=== PATIENT | female | born 1950 | race Asian ===

== ENCOUNTER 2025-03-11 15:34 | Outpatient (AMB) | payer OTHER, SELFPAY ==
--- OUTSIDE RECORDS SUMMARY | 2025-03-06 12:54 | XMS_ITS | Encounter Summary ---
Author Organization [facility] Address [address] [place] [address] Care Team Providers Care Third Miller Name Role Phone Km Evans MD Primary Care Provider [phone] Reason for Referral * Imaging (Routine) - Closed Specialty Diagnoses / Procedures Referred By Contac t Referred To Contact Radiology Diagnoses Encounter for osteoporosis screening in asymptomatic postmenopausal patient Procedures BD Bone Density DXA Axial Skeleton Km Evans MD [address] [place] [address] Phone: tel: fax: [address] Phone: tel: Referral ID Status Reason Start Date Expiration Date Visits Re quested Visits Authorized [id number] Closed 12/18/2024 12/18/2025 1 1 Reason for Visit * Imaging (Routine) - Closed Specialty Diagnoses / Procedures Referred By Contac t Referred To Contact Radiology Diagnoses Encounter for osteoporosis screening in asymptomatic postmenopausal patient Procedures BD Bone Density DXA Axial Skeleton Km Evans MD [address] [place] [address] Phone: tel: fax: [address] [address] Phone: tel: Referral ID Status Reason Start Date Expiration Date Visits Re quested Visits Authorized [id number] Closed 12/18/2024 12/18/2025 1 1 Encounter Details Date Type Department Care Team (Latest Contact Info) Description 03/06/2025 12:54 PM EST - 03/06/2025 11:59 PM EST Hospital Encounter [facility] Bone Density [address] [place] [address] Encounter for osteoporosis screening in asymptomatic postmenopausal patient Discharge Disposition: Home or Self Care Social History Tobacco Use Types Packs/Day Years Used Date Smoking Tobacco: Former Cigarettes 0 Q uit: 05/28/2017 Smokeless Tobacco: Never Alcohol Use Standard Drinks/Week Comments No 0 (1 standard drink = 0.6 oz pur e alcohol) Comments No Sex and Gender Information Value Date Recorded Sex Assigned at Female 08/10/2024 12:45 AM EDT Legal Sex Female 6:50 PM EST Gender Identity Female 08/10/2024 12:45 AM EDT Sexual Orientation Not on file documented as of this encounter Medications at Time of Discharge acetaminophen (TYLENOL 8 HOUR) 650 mg 8 hr tablet Take 1 tablet (650 mg total) by mouth every 8 (eight) hours if needed for mild pain. for pain 90 tablet 3 12/18/2024 albuterol HFA (PROAIR HFA ; PROVENTIL HFA ; VENTOLIN HFA) 90 mcg/actuation inhaler Inhale 2 puffs by mouth every 4 (four) hours if needed for wheezing. 8.5 g 3 12/18/2024 amLODIPine (NORVASC) 5 mg tablet Take 1.5 tablets (7.5 mg total) by mouth 1 (one) time each day. 135 each 1 12/18/2024 blood-glucose meter kit Use to check blood sugar once a day 08/16/2023 cetirizine (ZyrTEC) 10 mg tablet Take 10 mg by mouth daily. cyanocobalamin (VITAMIN B-12) 1,000 mcg tablet Take 1 tablet (1,000 mcg total) by mouth 3 (three) times a week. 90 tablet 1 06/14/2024 docusate sodium (COLACE) 100 mg capsule Take 1 Capsule by mouth 2 times daily. May repeat in 12 hours if needed 08/16/2023 dorzolamide-timoloL (COSOPT) 22.3-6.8 mg/mL ophthalmic solution 1 Drop 2 times daily. ferrous sulfate 325 mg (65 mg elemental iron) tablet Take 1 tablet (325 mg total) by mouth 3 (three) times a week. 90 tablet 06/14/2024 folic acid (FOLVITE) 1 mg tablet Take 1 Tablet by mouth daily. 04/13/2023 gabapentin (NEURONTIN) 300 mg capsule Take 2 capsules (600 mg total) by mouth 2 (two) times a day. 360 capsule 1 01/01/2025 glipiZIDE (GLUCOTROL XL) 5 mg 24 hr tablet Do not crush, chew, or split.Take 1 Tablet by mouth Daily before dinner. 90 tablet 1 12/18/2024 glipiZIDE (GLUCOTROL) 10 mg tablet Take 1 tablet daily in the morning and glipizide 5 mg daily at suppertime 90 tablet 1 12/18/2024 meloxicam (MOBIC) 7.5 mg tablet TAKE 1 TABLET(7.5 MG) BY MOUTH 1 TIME EACH DAY NEEDED FOR MODERATE PAIN 90 tablet 1 09/16/2024 metFORMIN (GLUCOPHAGE) 1,000 mg tablet Take 1 tablet (1,000 mg total) by mouth 2 (two) times a day with meals. 180 tablet 1 12/18/2024 omeprazole (PriLOSEC) [address] capsule Take 1 capsule (20 mg total) by mouth 2 (two) times a day. 180 capsule 1 12/18/2024 ondansetron ODT (ZOFRAN-ODT) 4 mg disintegrating tablet Dissolve 1 tablet (4 mg total) on top of the tongue 1 (one) time each day if needed for nausea or vomiting. 30 tablet 2 12/18/2024 OneTouch Ultra Test test strip USE TO TEST BLOOD SUGAR ONCE DAILY 100 strip 1 02/26/2025 OneTouch UltraSoft Lancets Use to check blood sugar once a day 08/16/2023 oxyCODONE (ROXICODONE) 5 mg immediate release tabletIndications:C hronic midline low back pain without sciatica Take 1 tablet (5 mg total) by mouth 1 (one) time each day if needed for moderate pain or severe pain. Max Daily Amount: 5 mg 28 tablet 12/18/2024 polyethylene glycol (MIRALAX) 17 gram packet Take 17 g by mouth 1 (one) time each day. 1530 g 12/18/2024 simvastatin (ZOCOR) 20 mg tablet Take 1 tablet (20 mg total) by mouth at bedtime. at bedtime. 90 tablet 1 12/18/2024 SUMAtriptan (IMITREX) 50 mg tablet Take 1-2 Tabs by mouth daily as needed for Migraine. May repeat dose once after 2 hours, if needed. Maximum 4 tabs in 24 hours 05/28/2018 documented as of this encounter Discharge Disposition Disposition Code Departure Means Destination Home or Self Care documented in this encounter Plan of Treatment Upcoming Encounters Date Type Department Care Team (Late st Contact Info) Description 03/15/2025 1:10 PM EST Appointment Radiology Department - [address] [phone] 04/22/2025 3:30 PM EST Office Visit Adult Medicine [place] - [address] [phone] Km Evans MD [address] [place] [address] 07/18/2025 3:45 PM EDT Office Visit Pulmonology - [address] [place] [address] Denys Mary MD [address] [place] [address] documented as of this encounter Procedures Procedure Name Priority Date/Time Associated Diagnosis Comments BD BONE DENSITY DXA AXIAL SKELETON Routine 03/06/2025 1:30 PM EST Encounter for osteoporosis screening in asymptomatic postmenopausal patient documented in this encounter Results * BD Bone Density DXA Axial Skeleton (03/06/2025 1:30 PM EST) Anatomical Region Laterality Modality Wrist, Hip, L-spine Bone Densito metry 03/07/2025 8:02 AM EST Impressions 03/07/2025 8:04 AM EST 1. Osteoporosis. There has been a decrease of 2.4% in bone mineral density in the lumbar spine since the prior examination of 01/24/2019. There has been a decrease of 5.7% in bone mineral density in the right femur and a decrease of 2.0% in bone mineral density in the left femur. 2. FRAX analysis yields a 10-year probability of major osteoporotic fracture of 8.8% and a 10-year probability of hip fracture of 2.4%. Code 06405 -------- FINAL REPORT -------- Dictated By: Horacio Hood Dictated Date: 03/07/2025 08:02 ET Assigned Physician: Horacio Hood Reviewed and Electronically Signed By: Horacio Hood Signed Date: 03/07/2025 08:04 ET Workstation ID: [id number] Transcribed By: Self Edit Transcribed Date: 03/07/2025 08:02 ET Narrative 03/07/2025 8:04 AM EST HISTORY: The patient is a 74-year-old postmenopausal female with clinical concern for metabolic bone disease. FINDINGS: Dual energy x-ray absorptiometry of the lumbar spine and femurs is performed. The mean bone mineral density at L1-L4 (with the exclusion of L3) is 0.912 gm/cm2 which is 78% of that of young normals and 99% of that of age matched controls. This yields a T-score of -2.2 and a Z-score of -0.1 which is diagnostic of osteopenia. The mean bone mineral density of the femurs bilaterally is 0.824 gm/cm2 which is 82% of that of young normals and 107% of that of age matched controls. This yields a T-score of -1.5 and a Z-score of 0.4 which is diagnostic of osteopenia. However, the T-score of the left femoral neck is -2.6 which is diagnostic of osteoporosis. Procedure Note Horacio Hood MD - 03/07/2025 HISTORY: The patient is a 74-year-old postmenopausal female with clinicalconcern for metabolic bone disease. FINDINGS: Dual energy x-ray absorptiometry of the lumbar spine and femursis performed. The mean bone mineral density at L1-L4 (with the exclusionof L3) is 0.912 gm/cm2 which is 78% of that of young normals and 99% ofthat of age matched controls. This yields a T-score of -2.2 and a Z-scoreof -0.1 which is diagnostic of osteopenia. The mean bone mineral density of the femurs bilaterally is 0.824 gm/xq5xxvhm is 82% of that of young normals and 107% of that of age matchedcontrols. This yields a T-score of -1.5 and a Z-score of 0.4 which isdiagnostic of osteopenia. However, the T-score of the left femoral neckis -2.6 which is diagnostic of osteoporosis. IMPRESSION: 1. Osteoporosis. There has been a decrease of 2.4% in bone mineraldensity in the lumbar spine since the prior examination of 01/24/2019.There has been a decrease of 5.7% in bone mineral density in the rightfemur and a decrease of 2.0% in bone mineral density in the left femur. 2. FRAX analysis yields a 10-year probability of major osteoporoticfracture of 8.8% and a 10-year probability of hip fracture of 2.4%. Code 04971 -------- FINAL REPORT -------- Dictated By: Horacio Hood Dictated Date: 03/07/2025 08:02 ET Assigned Physician: Horacio Hood Reviewed and Electronically Signed By: Horacio Hood Signed Date: 03/07/2025 08:04 ET Workstation ID: [id number] Transcribed By: Self Edit Transcribed Date: 03/07/2025 08:02 ET Km Evans MD IM DXA PROCEDURES Final Re sult documented in this encounter Visit Diagnoses Diagnosis Encounter for osteoporosis screening in asymptomatic postmenopausal patient documented in this encounter Additional Health Concerns Assessment Noted Time PHQ-9 Depression Total Score: 0 08/17/19 25 4:17 PM EDT documented as of this encounter Care Teams Third Miller Relationship Specialty Start Date End Date Km Evans MD [address] [place] [address] PCP - General Internal Medicine 07/20/21 documented as of this encounter
--- NOTE | 2025-03-11 15:40 | MHC.OFFVIS ---
Intake Visit Reasons: 6 month follow up Sleeve Fixer Required: Yes Sleeve Fixer Services: Sleeve Fixer Offered & Declined (son to translate) Accompanied by: Son Allergies No Known Allergies Allergy (Verified 03/11/25 15:43) Medication List - Last Reconciled 03/11/25 by Luba Bush CNP albuterol sulfate 90 mcg/actuation 2 puffs inhalation Q4H PRN amlodipine mg PO brimonidine 0.2% 1 drp ophthalmic (eye) BID fluorometholone 0.1% 1 drp ophthalmic (eye) DAILY gabapentin 600 mg (2 x 300 mg) PO BID 90 days glipizide ER 5 mg PO DAILY latanoprost 0.005% 1 drp ophthalmic (eye) BEDTIME meloxicam 7.5 mg PO DAILY metformin 1,000 mg PO BID omeprazole 20 mg PO BID ondansetron 4 mg PO ONCE PRN simvastatin 20 mg PO BEDTIME sumatriptan succinate mg PO HPI Comments Details: She was doing okay. She ran out of gabapentin for about a week a few months ago and headaches increased during that time. Headaches improved after restarting medication and were not happening that much anymore. Sumatriptan as needed helped. Sleep was okay. She moved here from [place] in 2012 and has history of hypertension, diabetes, low back pain, and migraines. She had 2 hospital visits and admissions to [facility] for headaches, imaging studies were apparently unremarkable. She gets headaches that last 2-3 hours and are associated with photophobia and nausea. She has had headaches ever since she was young. Her mother also suffered from migraine headaches. Review of Systems Const Denies chills, Denies daytime sleepiness, Denies difficulty sleeping, Denies fatigue, Denies fever(s), Denies frequent falls, Reports headache(s), Denies increased appetite, Denies poor appetite, Denies snoring, Denies weakness, Denies weight gain and Denies weight loss Eyes Denies loss of vision ENT Denies vertigo, Denies dizziness, Reports headache(s) and Denies neck pain Card Denies chest pain at rest, Denies chest pain with activity, Denies syncope, Denies leg edema, Denies palpitations, Denies dyspnea and Denies dyspnea on exertion Resp Denies cough, Denies dyspnea, Denies dyspnea on exertion and Denies snoring GI Denies abdominal pain, Denies constipation, Denies heartburn, Denies diarrhea and Denies nausea Denies urinary frequency, Denies urinary incontinence and Denies urinary urgency Musc Denies abnormal gait, Denies back pain, Denies myalgias, Denies arthralgias, Denies neck pain, Denies numbness and Denies tingling Neuro Denies abnormal gait, Denies vertigo, Denies dizziness, Denies syncope, Denies frequent falls, Reports headache(s), Denies lack of coordination, Denies loss of vision, Denies memory loss, Denies numbness, Denies Other visual disturbances, Denies restless legs, Denies seizure-like activity, Denies tingling, Denies paresthesias, Denies tremor(s) and Denies weakness Psych Denies anxiety, Denies depression, Denies auditory hallucinations, Denies memory loss and Denies visual hallucinations Endo Denies fatigue and Denies palpitations Physical Exam Const Other: General Appearance:? normal, in no acute distress. Heart:? S1, S2 normal, no murmurs. Lungs:? clear anteriorly and posteriorly. Musculoskeletal:? normal. Extremities:? no edema. Psych:? alert, oriented, cognitive function intact, cooperative with exam. Neuro Other: Abnormal Neurological Findings:?none.? Mental Status: alert and oriented X 3. Normal attention, orientation, memory, and affect. Cranial Nerves: Pupils are equal, round, and reactive to light. External ocular muscles are intact. Visual venegas are full, no ptosis. Face is symmetrical, no facial weakness or droop. Facial sensations are normal. Tongue protrudes in midline. Palate elevates symmetrically. Shoulder shrugging is normal Motor Examination: Normal muscle tone, bulk and strength. No atrophy or fasciculations. No drift of the extended upper extremities. DTR 2+. Plantars are flexor. Sensory Exam: Normal light touch, temperature, pinprick, vibration, and joint-position sensations. Rhomberg sign is absent. Coordination: No ataxia. No titubation. Gait Exam: Within normal limits. Cerebellar Signs: [id number]-ta-[id number] is okay. Extrapyramidal System: No tremor, rigidity with normal facial expressions. No bradykinesia. No bradyphrenia. Normal arm swing and posture. No propulsion or retropulsion. Speech: Normal. Assessment & Plan Assessment & Plan (1) Migraine: Code(s): G43.909 - Migraine, unspecified, not intractable, without status migrainosus Category: Medical Qualifiers: Migraine type: unspecified Status migrainosus presence: without status migrainosus Intractability: not intractable Qualified Code(s): G43.909 - Migraine, unspecified, not intractable, without status migrainosus Plan: Continue gabapentin 300mg 2 capsules at bedtime. Continue sumatriptan 50mg 1 tablet as needed for migraine. Follow up in 6 months or sooner as needed. Medications: New sumatriptan succinate take 1 tab at onset of headache; if no relief may repeat 1 tab after at least 2 hrs; PO 10 tabs 5RF 30 days Refilled gabapentin 600 mg (2 x 300 mg) PO BID 360 caps 1RF 90 days Discontinued sumatriptan succinate Discontinued Reason: Order PO Coding Level of Care Code Est Pt Level 4 (92684) Diagnoses Migraine without status migrainosus, not intractable, unspecified migraine type G43.909 Migraine type: unspecified Status migrainosus presence: without status migrainosus Intractability: not intractable
--- OUTSIDE RECORDS SUMMARY | 2025-03-11 16:39 | XMS_ITS | Encounter Summary ---
Author Organization [facility] Address [address] [place] [address] Care Team Providers Care Workplace Trainer And Assessor Name Role Phone Km Evans MD Primary Care Provider [phone] Encounter Details Date Type Department Care Team ([facility] Contact Info) Description 03/07/2025 Results Follow-Up [address] [phone] Km Evans MD [address] [place] [address] Social History Tobacco Use Types Packs/Day Years [...] on file documented as of this encounter Plan of Treatment Upcoming Encounters Date Type Department Care Team ([facility] Contact Info) Description 03/15/2025 1:10 PM EST Appointment Radiology Department - [address] [phone] 04/22/2025 3:30 PM EST Office Visit Adult Medicine [address] [place], [place] [phone] Km Evans MD [address] [place], [place] 07/18/2025 3:45 PM EDT Office Visit Pulmonology - [address] [place] [address] Denys Mary MD [address] [place] [address] documented as of this encounter Visit Diagnoses Not on filedocumented in this encounter Additional Health Concerns Assessment Noted Time PHQ-9 Depression Total Score: 0 08/17/19 25 4:17 PM EDT documented as of this encounter Care Teams Workplace Trainer And Assessor Relationship Specialty Start Date End Date Km Evans MD [address] [place] [address] PCP - General Internal Medicine 07/20/21 documented as of this encounter
--- OUTSIDE RECORDS SUMMARY | 2025-03-11 16:39 | XMS_ITS | Clinical Summary ---
Author Organization [facility] Prior to 08/17/24 Address [address] [place] [address] Care Team Providers Care Set Up Mechanic Coil Winding Machines Name Role Phone Rosie Green MD Primary Care Provid er Allergies No known active allergies Medications Medication Sig Dispensed Refills Start Date End Date Status phenazopyridine (PYRIDIUM) 100 MG tablet Take 100 mg by mouth 3 (three) times a day after meals. 0 Active lisinopril (PRINIVIL,ZESTRIL) tablet 20 mg Take 20 mg by mouth daily. 0 Active omeprazole (PriLOSEC) 20 MG capsule Take 20 mg by mouth daily. 0 Active glipiZIDE (GLUCOTROL) tablet 10 mg Take 10 mg by mouth 2 (two) times a day before breakfast and dinner. 0 Active oxyCODONE (ROXICODONE) 5 MG immediate release tablet Take 5 mg by mouth every 4 (four) hours as needed for pain. 0 Active gabapentin (NEURONTIN) 300 MG capsule Take 300 mg by mouth 3 (three) times a day. 0 Active meloxicam (MOBIC) 7.5 MG tablet Take 7.5 mg by mouth daily. 0 Active metFORMIN (GLUCOPHAGE) tablet 1000 mg Take 1,000 mg by mouth 2 (two) times a day with meals. 0 Active polyethylene glycol (MIRALAX) 17 g packet Take 17 g by mouth daily. 0 Active polyethylene glycol (GOLYTELY) 236 g solution Take by mouth once. 0 Active Albuterol Sulfate 108 (90 Base) MCG/ACT AEPB Inhale into the lungs. 0 Active fluticasone-salmeterol (ADVAIR DISKUS) 250-50 MCG/DOSE DISKUS 1 inhalation by Inhaled route every 12 (twelve) hours. 0 Active simvastatin (ZOCOR) tablet 20 mg Take 20 mg by mouth every night at bedtime. 0 Active donepezil (ARICEPT) 5 MG tablet Take 5 mg by mouth every night at bedtime. 0 Active ondansetron (ZOFRAN-ODT) 4 MG disintegrating tablet Take by mouth. 0 Active Cyanocobalamin [address] under the tongue. 0 Active SUMAtriptan (IMITREX) 50 MG tablet Take 50 mg by mouth every 2 (two) hours as needed for migraine. 0 Active cetirizine (ZyrTEC) 10 MG tablet Take 10 mg by mouth daily. 0 Active docusate sodium (COLACE) 100 MG capsule Take 100 mg by mouth 2 (two) times a day. 0 Active B-12, Methylcobalamin, [address] under the tongue. 0 Active CHOLECALCIFEROL PO Take by mouth. 0 Ac tive dorzolamide-timolol (COSOPT) 22.3-6.8 MG/ML ophthalmic solution 1 drop 2 (two) times a day. 0 Active Active Problems No known active problems Social History Tobacco Use Types Packs/Day Years Used Date Smoking Tobacco: Former Smokeless Tobacco: Never Comments:quit 3 years ago Alcohol Use Standard Drinks/Week Comments No 0 (1 standard drink = 0.6 oz pur e alcohol) Sex and Gender Information Value Date Recorded Sex Assigned at Not on file Gender Identity Not on file Sexual Orientation Not on file Last Filed Vital Signs Vital Sign Reading Time Taken Comments Blood Pressure 148/91 12/05/2019 11:48 AM EDT pt seeing PCP who is adjusting her medications Pulse 99 12/05/2019 11:48 AM EDT Temperature 36.3 C (97.3 F) 12/05/2019 11:48 AM EDT Respiratory Rate - - Oxygen Saturation - - Inhaled Oxygen Concentration - - Weight 56.2 kg (123 lb 12.8 oz) 12/05/2019 11:48 AM EDT Height 142.2 cm (4' 8 ) 12/05/2019 11:4 8 AM EDT Body Mass Index 27.76 12/05/2019 11:48 AM EDT Plan of Treatment Health Maintenance Due Date Last Done Comments Hepatitis C Screening 1950 COVID-19 Vaccine (#1) 1950 Depression Screening 1963 Preventative Health Evaluation 05/18/1969 DTap / Tdap / Td (1 - Tdap) 05/18/1970 Colon Cancer Screening (Colonoscopy) 05/18/1996 Breast Cancer Screening (Mammogram) 05/18/2001 Shingrix-Zoster Vaccine (1 o f 2) 05/18/2001 Fall Risk Assessment 05/18/2016 Osteoporosis Screening (DEXA Scan) 05/18/2016 Influenza Vaccine (#1) 2024 9, 12/29/2016 RSV Adult > 60+ Yrs or (1 - 1-dose 75+ series) 05/18/2026 Pneumococcal Vaccine Completed 06/12/2019, 07/18/2016 Hepatitis B Vaccines Aged Out No long er eligible based on patient's age to complete this topic RSV Ped < 20 months Aged Out No longe r eligible based on patient's age to complete this topic Care Teams Set Up Mechanic Coil Winding Machines Relationship Specialty Start Date End Date Rosie Green MD PCP - General Internal Medicine 11/04/19
--- OUTSIDE RECORDS SUMMARY | 2025-03-11 16:39 | XMS_ITS | Clinical Summary ---
Author Organization [facility] Address [address] [place] [address] Phone Care Team Providers Care Photographic Processor Name Role Phone Km Evans MD Primary Care Provider Allergies Active Allergy Reactions Criticality Noted Date Comments Lisinopril Dizziness 03/25/2022 Losartan Dizziness 03/25/2022 Medications blood-glucose meter kit Use to check blood sugar once a day 08/16/19 24 Active cetirizine (ZyrTEC) 10 mg tablet Take 10 mg by mouth daily. Active docusate sodium (COLACE) 100 mg capsule Take 1 Capsule by mouth 2 times daily. May repeat in 12 hours if needed 08/16/19 24 Active dorzolamide-timol oL (COSOPT) 22.3-6.8 mg/mL ophthalmic solution 1 Drop 2 times daily. Active folic acid (FOLVITE) 1 mg tablet Take 1 Tablet by mouth daily. 04/13/19 24 Active OneTouch UltraSoft Lancets Use to check blood sugar once a day 08/16/19 24 Active SUMAtriptan (IMITREX) 50 mg tablet Take 1-2 Tabs by mouth daily as needed for Migraine. May repeat dose once after 2 hours, if needed. Maximum 4 tabs in 24 hours 05/29/19 19 Active ferrous sulfate 325 mg (65 mg elemental iron) tablet Take 1 tablet (325 mg total) by mouth 3 (three) times a week. 90 tablet 06/15/19 25 Active cyanocobalamin (VITAMIN B-12) 1,000 mcg tablet Take 1 tablet (1,000 mcg total) by mouth 3 (three) times a week. 90 tablet 1 06/15/19 25 Active meloxicam (MOBIC) 7.5 mg tablet TAKE 1 TABLET(7.5 MG) BY MOUTH 1 TIME EACH DAY NEEDED FOR MODERATE PAIN 90 tablet 1 09/17/19 25 Active acetaminophen (TYLENOL 8 HOUR) 650 mg 8 hr tablet Take 1 tablet (650 mg total) by mouth every 8 (eight) hours if needed for mild pain. for pain 90 tablet 3 12/19/19 25 Active albuterol HFA (PROAIR HFA ; PROVENTIL HFA ; VENTOLIN HFA) 90 mcg/actuation inhaler Inhale 2 puffs by mouth every 4 (four) hours if needed for wheezing. 8.5 g 3 12/19/19 25 Active glipiZIDE (GLUCOTROL XL) 5 mg 24 hr tablet Do not crush, chew, or split.Take 1 Tablet by mouth Daily before dinner. 90 tablet 1 12/19/19 25 Active glipiZIDE (GLUCOTROL) 10 mg tablet Take 1 tablet daily in the morning and glipizide 5 mg daily at suppertime 90 tablet 1 12/19/19 25 Active metFORMIN (GLUCOPHAGE) 1,000 mg tablet Take 1 tablet (1,000 mg total) by mouth 2 (two) times a day with meals. 180 tablet 1 12/19/19 25 Active omeprazole (PriLOSEC) [address] capsule Take 1 capsule (20 mg total) by mouth 2 (two) times a day. 180 capsule 1 12/19/19 25 Active oxyCODONE (ROXICODONE) 5 mg immediate release tabletIndications :Chronic midline low back pain without sciatica Take 1 tablet (5 mg total) by mouth 1 (one) time each day if needed for moderate pain or severe pain. Max Daily Amount: 5 mg 28 tablet 12/19/19 25 Active ondansetron ODT (ZOFRAN-ODT) 4 mg disintegrating tablet Dissolve 1 tablet (4 mg total) on top of the tongue 1 (one) time each day if needed for nausea or vomiting. 30 tablet 2 12/19/19 25 Active polyethylene glycol (MIRALAX) 17 gram packet Take 17 g by mouth 1 (one) time each day. 1530 g 10/01/20 25 Active simvastatin (ZOCOR) 20 mg tablet Take 1 tablet (20 mg total) by mouth at bedtime. at bedtime. 90 tablet 1 12/19/19 Active amLODIPine (NORVASC) 5 mg tablet Take 1.5 tablets (7.5 mg total) by mouth 1 (one) time each day. 135 each 1 12/19/19 Active gabapentin (NEURONTIN) 300 mg capsule Take 2 capsules (600 mg total) by mouth 2 (two) times a day. 360 capsule 1 01/02/20 Active OneTouch Ultra Test test strip USE TO TEST BLOOD SUGAR ONCE DAILY 100 strip 1 02/27/20 Active OneTouch Ultra Test test strip USE TO CHECK YOUR BLOOD SUGAR ONCE DAILY 100 strip 1 08/17/192024 Discontinued Active Problems Problem Noted Date Diagnosed Date Mixed hyperlipidemia 06/14/2024 Assessment & Plan (08/16/2024 9:03 PM EDT): Chronic nonintractable headache 06/14/2024 Assessment & Plan (08/16/2024 9:03 PM EDT): Orders: Drug abuse screen expanded with reflex confirmation, urine; Future Lung nodules 04/13/2023 Overview (01/11/2024): Last Assessment & Plan: 73-year-old woman former smoker with a 6 mm right upper lobe nodule on CT scan. This nodule is irregular in shape and still quite small although new. I think there is a low likelihood of this being malignancy as there is inflammatory changes around and including some bronchiectasis. I did discuss with her and her son through wax coating machine tender pulmonary nodules in general and how their size, shape, and global climate change analyst time affect her level of suspicion for malignancy. Again, I explained why this is not a suspicious nodule. The option that I discussed with them was a 3-month follow-up CT scan of the chest and a visit in this office after that. All questions were answered. Assessment & Plan (08/29/2024 3:01 PM EDT): Ms. Chavez is a 74 y.o. female, former smoker quit in 2018, who has been having LDCTs with the Lung Cancer Screening Program. Being followed for pulmonary nodules. Her most recent LDCT scan which showed multiple sub-4 mm nodules throughout the lungs which remained stable and a 6 mm right middle lobe nodule versus atelectasis also stable compared to prior. There is no new or worsening suspicious nodules or mediastinal lymphadenopathy. Her LDCT scan is a lung RADS 2 consistent with a benign ideology. She was educated that she would be referred back to the lung cancer screening program with her next LDCT scan due in August 2025 Assessment & Plan (08/16/2024 9:03 PM EDT): Assessment & Plan (02/19/2024 8:25 PM EST): Ms. Chavez is a 73 year old female who had a new 6mm nodule in the RML found on CT chest in September 2023. The patient's most recent CT chest done on 02/07/24 shows that the RML nodule in question appears stable in size, but seems to be tubular in shape on recent image. Low suspicion for malignancy at this time, but should continue ongoing LDCTs as patient remains a candidate for lung screening. Recommend next LDCT with the screening program to be in 6 months, July 2024. Patient does not require ongoing follow up with Thoracic Surgery at this time. Age related osteoporosis 08/10/2022 Assessment & Plan (08/16/2024 9:03 PM EDT): Chronic anemia 08/10/2022 Mild persistent asthma without complication 07/19 Fluid in endometrial cavity 03/30/2020 Overview (01/11/2024): Last Assessment & Plan: I reviewed imaging with patient and her daughter in law. I explained that in the absence of bleeding, with normal ES of 1 mm, and simple appearing sliver of fluid, no intervention is necessary. This is considered WNL. I explained there is no Secretary Of State cause of her pain and that, alternatively, it seems more likely that she has some hip pain. This may be arthritis based on her report that pain is worse when just getting up some mornings and does not happen all the time. I recommended she follow up with her PCP if it becomes more persistent. She will return to me for routine care first available. They voiced understanding and agreed. Time spent with patient and in review of records 20 minutes. Hyponatremia 09/27/2019 Hypercholesterolemia 08/03/2018 Adjustment disorder with depressed mood 05/14/19 19 Anxiety 05/14/2018 Arthritis of both knees 05/14/2018 Asthma-COPD overlap syndrome 05/14/2018 Back pain 05/14/2018 Assessment & Plan (08/16/2024 9:03 PM EDT): Orders: oxyCODONE (ROXICODONE) 5 mg immediate release tablet; Take 1 tablet (5 mg total) by mouth 1 (one) time each day if needed for moderate pain or severe pain. Max Daily Amount: 5 mg Drug abuse screen expanded with reflex confirmation, urine; Future Hypertension 05/14/2018 Overview (01/11/2024): Last Assessment & Plan: Pt reports she usually takes her BP meds at night. Will follow up with PCP for routine care. Assessment & Plan (08/16/2024 9:03 PM EDT): Orders: Basic metabolic panel; Future Microalbumin creatinine urine ratio; Future Interstitial lung disease 05/14/2018 Assessment & Plan (02/19/2024 8:22 PM EST): Refer to pulmonology. Diffuse lung disease on CT. 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 Bone Density [address] [place] [id number] Encounter for osteoporosis screening in asymptomatic postmenopausal patient Discharge Disposition: Home or Self Care 12/18/2024 3:45 PM EDT Office Visit [address] [phone] Km Evans MD Type 2 diabetes mellitus with microalbuminuria, without long-term current use of insulin (CMS/HCC V24, CMS/HCC V28) (Primary Dx); Primary hypertension; Mixed hyperlipidemia; Asthma-COPD overlap syndrome (CMS/HCC V24, CMS/HCC V28); Lung nodules; Chronic nonintractable headache, unspecified headache type; Chronic midline low back pain without sciatica; Age-related osteoporosis without current pathological fracture; Encounter for osteoporosis screening in asymptomatic postmenopausal patient 12/18/2024 Results Follow-Up Adult [address] [phone] Km Evans MD from Last 3 Months Immunizations Immunization Administration Dates Next Due Hepatitis B (Qmhavke-Z-Wjtag , Recombivax HB-Adult) 19yo and older 05/17/2013,01/24/2013,11/28/2012 Hepatitis B (Recombivax HB-D ialysis) 18yo and older 05/17/2013,01/24/2013,11/28/2012 Influenza trivalent, 0.5mL ( Fluad) 65yo and older 12/18/2023,12/12/2022,01/15/2021,01/12,02/19/2019 Influenza trivalent, 0.5mL, preservative free (Fluarix; FluLaval; Fluzone) ages 6mo and older (Afluria) 3 years and older 12/29/2016 Influenza trivalent, with pr eservative (Fluzone; Afluria) 6mo and older 12/11/2014,02/07/2014,04/17/2013 Pfizer SARS-CoV-2 COVID-19, mRNA, LNP-S, preservative free 03/23/2021,07/10/2020,06/18/2020 Pneumococcal conjugate 13 va lent (Prevnar 13, PCV13) 2mo and older 07/18/2016 Pneumococcal conjugate 20 va lent (Prevnar 20, PCV 20) 2mo and older 03/18/2024 Pneumococcal polysaccharide 23 valent (Pneumovax 23) 2yo and older 06/12/2019,05/17/2013 Td Tetanus diptheria (Tdvax) 7yo and older 08/16/2023,11/28/2012 Tdap Tetanus diptheria acell ular pertussis (Boostrix; Adacel) 7yo and older 04/17/2013 Zoster Live 08/13/2015 Surgical History Surgery Date Site/Laterality Comments COLONOSCOPY 09/24/2019 PROCEDURE: HISTORICAL COLONOSCOPY; COMMENT: negative Medical History Medical History Date Comments Adjustment disorder with dep ressed mood 05/14/2018 DX:Adjustment disorder with depressed mood Anxiety 05/14/2018 DX:Anxiety Arthritis of both knees 05/14/2018 DX:Arthr itis of both knees Asthma 05/14/2018 DX:Asthma Back pain 05/14/2018 DX:Back pain Glaucoma 04/25/2018 DX:Glaucoma Hypertension 05/14/2018 DX:Hypertension Interstitial lung disease ([facility] [place] V24, [facility] V28) 05/14/2018 DX:Interstitial lung disease (HCC) 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 ([facility] V24, [facility] V28) 04/25/2018 DX:Mild nonproliferative rafael betic retinopathy of both eyes ([facility]) Osteopenia 05/14/2018 DX:Osteopenia Tuberculosis, treated 05/14/2018 DX:Tubercu losis, treated Type 2 diabetes mellitus wit h ophthalmic manifestations ([facility] V24, [facility] V28) 05/14/2018 DX: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 (HCC) Vitamin B12 deficiency 05/14/2018 DX:Vitami n B12 deficiency Hyperlipidemia DX:Hyperlipidemi a Esophageal reflux DX:Esophageal reflux Family History Medical History Relation Name Comments Migraines Daughter Depression Sister Breast cancer Neg Hx Colon cancer Neg Hx Relation Name Status Comments Daughter Mother Sister Social History Tobacco Use Types Packs/Day Years Used Date Smoking Tobacco: Former Cigarettes 0 Q uit: 05/28/2017 Smokeless Tobacco: Never Tobacco Cessation:Counseling Given: Not Answered Alcohol Use Standard Drinks/Week Comments No 0 (1 standard drink = 0.6 oz pur e alcohol) Comments No Sex and Gender Information Value Date Recorded Sex Assigned at Female 08/10/2024 12:45 AM EDT Legal Sex Female 6:50 PM EST Gender Identity Female 08/10/2024 12:45 AM EDT Sexual Orientation Not on file Obstetrics History Para Term AB IAB SAB Ectopic Multiple Livin g Live Births 7 7 7 7 Date Outcome GA Total Labor Labor/2nd/3rd Weight Sex Type Anes PTL Bettye A1 A5 Name Clin Term Term Term Term Term Term Term Last Filed Vital Signs Vital Sign Reading Time Taken Comments Blood Pressure 145/91 12/18/2024 3:53 PM EDT Pulse 91 12/18/2024 3:30 PM EDT Temperature 35.9 C (96.6 F) 12/18/2024 3:30 PM EDT Respiratory Rate 14 08/28/2024 10:28 AM EDT Oxygen Saturation 98% 08/28/2024 10:28 AM EDT Inhaled Oxygen Concentration - - Weight 55.8 kg (123 lb) 12/18/2024 3:30 PM EDT Height 129.5 cm (4' 3 ) 12/18/2024 3:30 PM EDT Body Mass Index 33.25 12/18/2024 3:30 PM EDT Plan of Treatment Upcoming Encounters Date Type Department Care Team (Late st Contact Info) Description 03/15/2025 1:10 PM EST Appointment Radiology Department - [address] [phone] 04/22/2025 3:30 PM EST Office Visit [facility] [address] [phone] Km Evans MD [address] [place] [address] 07/18/2025 3:45 PM EDT Office Visit Pulmonology - [address] [place] [address] [facility] [address] [place] [address] Health Maintenance Due Date Last Done Comments Naloxone Order 1950 Opioid Substance Agreement 1950 Pain Assessment 1950 RSV Immunization Adult Patients (1 - Risk 50-74 years 1-dose series) 05/18/2001 Zoster Vaccines (2 of 3) 10/08/2015 08/13/2015 Social Influencers of Health Screening 02/25/2022 Diabetes: Annual Retina Eye Exam 03/27/2024 03/27/2023 Diabetes: Annual Foot Exam 08/15/2024 08/16/2023 COVID-19 Vaccine ( season) 2024 10/04/2021, 03/23/2021, 07/10/2020, Additional history exists Influenza Vaccine (#1) 2024 , 12/12/2022, 01/15/2021, Additional history exists Diabetes: Blood Sugar Control Test (HGBA1C) 06/18/2025 12/18/2024, 06/14/2024, 12/18/2023 Falls Risk Assessment 08/16/2025 08/16/2024 Medicare Annual Wellness Visit 08/16/2025 08/16/2024 Diabetes: Annual Urine Albumin-Creatinine Ratio (uACR) 12/18/2025 12/18/2024, 06/14/2024, 12/18/2023 Diabetes: Annual GFR (Glomerular Filtration Rate) 12/18/2025 12/18/2024, 06/14/2024, 12/18/2023 Drug Screen 12/18/2025 12/18/2024, 06/14/2024 Hypertension/CHF/CAD Annual BMP Blood Test 12/18/2025 12/18/2024, 06/14/2024, 12/18/2023 Breast Cancer Screening 03/04/2026 03/04/20 24, 02/18/2023, 08/26/2021, Additional history exists Cholesterol Screening (Lipid Panel) 08/13/2027 08/12/2022 Colorectal Cancer Screening: Colonoscopy 09/23/2029 09/24/2019 DTaP,Tdap,and Td Vaccines (4 - Td or Tdap) 08/15/2033 08/16/2023, 04/17/2013, 11/28/2012 Osteoporosis Screening (Bone Density Screening) 03/06/2035 03/06/2025, 04/08/2022, 01/24/2019 Hepatitis B Vaccines Completed 05/17/2013, 05/17/2013, 01/24/2013, Additional history exists Hepatitis C Screening Completed 02/19/2019 Pneumococcal Vaccine: 50+ Years Completed 03/18/2024, 06/12/2019, 07/18/2016, Additional history exists Depression Screening Completed 08/16/2024 HIB Vaccines Aged Out No longer eligi ble based on patient's age to complete this topic HPV Vaccines Aged Out No longer eligi ble based on patient's age to complete this topic Hepatitis A Vaccines Aged Out No long er eligible based on patient's age to complete this topic IPV Vaccines Aged Out No longer eligi ble based on patient's age to complete this topic MMR Vaccines Aged Out No longer eligi ble based on patient's age to complete this topic Meningococcal ACWY Vaccine Aged Out N o longer eligible based on patient's age to complete this topic Meningococcal B Vaccine Aged Out No l onger eligible based on patient's age to complete this topic RSV Immunization Patients Under 20 months Aged Out No longer eligible based on patient's age to complete this topic Varicella Vaccines Aged Out No longer eligible based on patient's age to complete this topic Procedures Procedure Name Priority Date/Time Associated Diagnosis Comments BD BONE DENSITY DXA AXIAL SKELETON Routine 03/06/2025 1:30 PM EST Encounter for osteoporosis screening in asymptomatic postmenopausal patient HEMOGLOBIN A1C Routine 12/18/2024 4:20 PM EDT Type 2 diabetes mellitus with microalbuminuria, without long-term current use of insulin ([facility] V24, [facility] V28) BASIC METABOLIC PANEL Routine 12/18/2024 4:20 PM EDT Type 2 diabetes mellitus with microalbuminuria, without long-term current use of insulin ([facility] V24, [facility] V28) Primary hypertension MICROALBUMIN CREATININE URINE RATIO Routine 12/18/2024 4:20 PM EDT Type 2 diabetes mellitus with microalbuminuria, without long-term current use of insulin ([facility] V24, [facility] V28) Primary hypertension DRUG ABUSE SCREEN EXPANDED WITH REFLEX CONFIRMATION, URINE Routine 12/18/2024 4:20 PM EDT Chronic nonintractable headache, unspecified headache type Chronic midline low back pain without sciatica POC GLUCOSE Routine 12/18/2024 3:37 PM EDT Type 2 diabetes mellitus with microalbuminuria, without long-term current use of insulin ([facility] V24, [facility] V28) MG MAMMO DIGITAL SCREENING W GERRY BILAT Routine 03/04/2024 11:21 AM EST Encounter for screening mammogram for breast cancer DIABETES FOOT EXAM Routine 08/16/2023 DIABETES EYE EXAM Routine 03/27/2023 LIPID PANEL Routine 08/12/2022 COLONOSCOPY Routine 09/24/2019 HEPATITIS C SCREENING Routine 02/19/2019 from Last 3 Months or Most Recently Relevant to Health Maintenance Results * BD Bone Density DXA Axial [...] probability of hip fracture of 2.4%. Code 52362 -------- FINAL REPORT -------- Dictated By: Horacio Hood Dictated Date: 03/07/2025 08:02 ET Assigned Physician: Horacio Hood Reviewed and Electronically Signed By: Horacio Hood Signed Date: 03/07/2025 08:04 ET Workstation ID: [id number] Transcribed By: Self Edit Transcribed Date: 03/07/2025 [...] density of the femurs bilaterally is 0.824 gm/[id number] is 82% of that of young normals [...] probability of hip fracture of 2.4%. Code 86303 -------- FINAL REPORT -------- Dictated By: Horacio Hood Dictated Date: 03/07/2025 08:02 ET Assigned Physician: Horacio Hood Reviewed and Electronically Signed By: Horacio Hood Signed Date: 03/07/2025 08:04 ET Workstation ID: [id number] Transcribed By: Self Edit Transcribed Date: 03/07/2025 08:02 ET Km Evans MD [facility] [place]ED[place] Final Re sult * Drug abuse screen expanded with reflex confirmation, urine (12/18/2024 4:20 PM EDT) Amphetamine Screen, Ur Negative Negative LAB CHEMISTRY METHOD 12/18/2024 7:[address] [facility] Comment:Certain OTC medicati ons containing ephedrine, phenylephrine, pseudoephedrine and phenylpropanolamine can cause false positive results. Barbiturate Screen, Ur Negative Negative LAB CHEMISTRY METHOD 12/18/2024 7:[address] [facility] Benzodiazepine Screen, Ur Negative Negative LAB CHEMISTRY METHOD 12/18/2024 7:[address] [facility] Cocaine Screen, Ur Negative Negative LAB CHEMISTRY METHOD 12/18/2024 7:[address] [facility] Opiate Screen, Ur Negative Negative LAB CHEMISTRY METHOD 12/18/2024 7:[address] [facility] Cannabinoid (THC) Screen, Ur Negative Negative LAB CHEMISTRY METHOD 12/18/2024 7:[address] [facility] Comment:Specimens from patie nts taking pantoprazole sodium (Protonix) have been shown to produce false positive results. Fentanyl, Ur Negative Negative LAB CHEMISTRY METHOD 12/18/2024 7:[address] [facility] Oxycodone Screen, Ur Negative Negative LAB CHEMISTRY METHOD 12/18/2024 7:[address] [facility] Urine Urine specimen obtained by clean catch procedure / Unknown Non-blood Collection / Unknown 12/18/2024 4:20 PM EDT 12/18/2024 4:[address] [facility] - 12/18/2024 7:13 PM EDT Assay cutoffs: Amphetamines 1000 ng/mL Barbiturates 200 ng/mL Benzodiazepines 200 ng/mL Cocaine 300 ng/mL Fentanyl 1 ng/mL Opiates 300 ng/mL Oxycodone 100 ng/mL THC 50 ng/mL Semi-quantitative assay for screening purposes only. Unconfirmed screening result should not be used for non-medical purposes. *POSITIVE RESULTS ARE AUTOMATICALLY SENT FOR ALTERNATE METHOD CONFIRMATION* Km Evans MD LAB URINE ORDERABLES Final Result [facility] [address] [place] [address], [place] [phone] * (ABNORMAL) Microalbumin creatinine urine ratio (12/18/2024 4:20 PM EDT) Creatinine, Urine 46.0 mg/dL LAB CHEMISTRY METHOD 12/18/2024 7:[address] [facility] Microalb, Ur 101.0(H) 0.0 - 29.0 mg/L LAB CHEMISTRY METHOD 12/18/2024 7:[address] [facility] Microalb/Crea t Ratio 220(H) <30 mg/g creat LAB CHEMISTRY METHOD 12/18/2024 7:[address] [facility] Urine Urine specimen obtained by clean catch procedure / Unknown Non-blood Collection / Unknown 12/18/2024 4:20 PM EDT 12/18/2024 4:20 PM EDT Km Evans MD LAB URINE ORDERABLES Final Result [facility] [address] [place] [address], [place] [phone] * (ABNORMAL) Hemoglobin A1c (12/18/2024 4:20 PM EDT) Hemoglobin A1C 7.6(H) <6.5 % LAB CHEMISTRY METHOD 12/18/2024 10:[address] [facility] Mean Bld Glu Estim. 171 mg/dL LAB CHEMISTRY METHOD 12/18/2024 10:[address] [facility] Blood Venous blood specimen / Unknown Venipuncture / Unknown 12/18/2024 4:20 PM EDT 12/18/2024 4:20 PM EDT Km Evans MD LAB BLOOD ORDERABLES Final Result [facility] [address] [place] [address], [place] [phone] * Basic metabolic panel (12/18/2024 4:20 PM EDT) Sodium 138 133 - 145 mmol/L LAB CHEMISTRY METHOD 12/18/2024 7:[address] [facility] Potassium 4.1 3.5 - 5.5 mmol/L LAB CHEMISTRY METHOD 12/18/2024 7:10 PM [facility] Chloride 106 96 - 110 mmol/L LAB CHEMISTRY METHOD 12/18/2024 7:10 PM [facility] CO2 25 21 - 32 mmol/L LAB CHEMISTRY METHOD 12/18/2024 7:10 PM [facility] Anion Gap 7 3 - 11 LAB CHEMISTRY METHOD 12/18/2024 7:10 PM [facility] Glucose 90 70 - 100 mg/dL LAB CHEMISTRY METHOD 12/18/2024 7:10 PM [facility] BUN 8 5 - 25 mg/dL LAB CHEMISTRY METHOD 12/18/2024 7:10 PM [facility] Creatinine 0.67 0.50 - 1.10 mg/dL LAB CHEMISTRY METHOD 12/18/2024 7:10 PM [facility] eGFR 92 >=60 mL/min/1. 73m2 LAB CHEMISTRY METHOD 12/18/2024 7:10 PM [facility] Comment:Calculation based on the Chronic Kidney Disease Epidemiology Collaboration (CKD-EPI) equation refit without adjustment for race. BUN/Creatinine Ratio 11.9 LAB CHEMISTRY METHOD 12/18/2024 7:10 PM [facility] Calcium 9.4 8.5 - 10.5 mg/dL LAB CHEMISTRY METHOD 12/18/2024 7:10 PM [facility] Blood Venous blood specimen / Unknown Venipuncture / Unknown 12/18/2024 4:20 PM EDT 12/18/2024 4:20 PM EDT us Km Evans MD LAB BLOOD ORDERABLES Final Result [facility] [address] [place] [address], * POC glucose manually resulted (12/18/2024 3:37 PM EDT) Glucose POC 126 mg/dL Blood Capillary blood specimen / Unknown 12/18/2024 3:37 PM EDT Km Evans MD POINT OF CARE TEST ENTER/ED IT ORDERABLES Final Result * MG Mammo Digital Screening w Gerry bilat (03/04/2024 11:21 AM EST) Anatomical Region Laterality Modality Breast Bilateral Mammography 03/04/2024 11:4 6 AM EST Addenda Addendum by Lizeth Mills MD on 03/04/2024 11:49 AM EST EXAMINATION TYPE: MG MAMMO DIGITAL SCREENING W GERRY BILAT DATE OF EXAM ORDERED: 03/04/2024 11:12 AM COMPARISON: Prior mammograms, latest from 02/18/2023. REASON FOR STUDY: Breast cancer screen, avg risk, asymptomatic (Age => 40y) TECHNIQUE: Bilateral mediolateral oblique and craniocaudal views were obtained digitally with 3-D mammogram (digital breast tomosynthesis) with CAD. Computer-aided detection was utilized in evaluation of this examination (Projjixok; iCAD). FINDINGS: The breast tissue distribution pattern is unchanged. There is no suspicious mass, suspicious calcifications or suspicious architectural distortion. BREAST DENSITY: B - There are scattered areas of fibroglandular density. IMPRESSION: No mammographic evidence of malignancy. BI-RADS CATEGORY: 1 - NEGATIVE RECOMMENDATION: Screening bilateral mammogram is recommended in 1 year. Screening bilateral mammogram is recommended in 1 year. -------- FINAL REPORT -------- Dictated By: Lizeth Mills Dictated Date: 03/04/2024 11:46 ET Assigned Physician: Lizeth Mills Reviewed and Electronically Signed By: Lizeth Mills Signed Date: 03/04/2024 11:49 ET Workstation ID: [id number] Transcribed By: Self Edit Transcribed Date: 03/04/2024 11:46 ET Impressions 03/04/2024 11:49 AM EST No mammographic evidence of malignancy. BI-RADS CATEGORY: 1 - NEGATIVE RECOMMENDATION: Screening bilateral mammogram is recommended in 1 year. Screening bilateral mammogram is recommended in 1 year. -------- FINAL REPORT -------- Dictated By: Lizeth Mills Dictated Date: 03/04/2024 11:46 ET Assigned Physician: Lizeth Mills Reviewed and Electronically Signed By: Lizeth Mills Signed Date: 03/04/2024 11:49 ET Workstation ID: [id number] Transcribed By: Self Edit Transcribed Date: 03/04/2024 11:46 ET Narrative 03/04/2024 11:49 AM EST EXAMINATION TYPE: MG MAMMO DIGITAL SCREENING W GERRY BILAT DATE OF EXAM ORDERED: 03/04/2024 11:12 AM COMPARISON: Prior mammograms, latest from 02/18/2023. REASON FOR STUDY: Breast cancer screen, avg risk, asymptomatic (Age => 41y) TECHNIQUE: Bilateral mediolateral oblique and craniocaudal views were obtained digitally with 3-D mammogram (digital breast tomosynthesis) with CAD. Computer-aided detection was utilized in evaluation of this examination (SecondLook; iCAD). FINDINGS: The breast tissue distribution pattern is unchanged. There is no suspicious mass, suspicious calcifications or suspicious architectural distortion. BREAST DENSITY: B - There are scattered areas of fibroglandular density. Procedure Note Lizeth Mills MD - 03/04/2024 EXAMINATION TYPE: MG MAMMO DIGITAL SCREENING W GERRY BILAT DATE OF EXAM ORDERED: 03/04/2024 11:12 AM COMPARISON: Prior mammograms, latest from 02/18/2023. REASON FOR STUDY: Breast cancer screen, avg risk, asymptomatic (Age =>41y) TECHNIQUE: Bilateral mediolateral oblique and craniocaudal views wereobtained digitally with 3-D mammogram (digital breast tomosynthesis) withCAD. Computer- aided detection was utilized in evaluation of thisexamination (SecondLook; iCAD). FINDINGS: The breast tissue distribution pattern is unchanged. There is nosuspicious mass, suspicious calcifications or suspicious architecturaldistortion. BREAST DENSITY: B - There are scattered areas of fibroglandular density. IMPRESSION: No mammographic evidence of malignancy. BI-RADS CATEGORY: 1 - NEGATIVE RECOMMENDATION: Screening bilateral mammogram is recommended in 1 year. Screeningbilateral mammogram is recommended in 1 year. -------- FINAL REPORT -------- Dictated By: Lizeth Mills Dictated Date: 03/04/2024 11:46 ET Assigned Physician: Lizeth Mills Reviewed and Electronically Signed By: Lizeth Mills Signed Date: 03/04/2024 11:49 ET Workstation ID: [id number] Transcribed By: Self Edit Transcribed Date: 03/04/2024 11:46 ET Km Evans MD IMG BI PROCEDURES Edited Re sult - Final * Diabetes Foot Exam (08/16/2023) [facility] Diabetes: Annual Foot Exam abstracted Result [facility] HEALTH MAINTENANCE Final Result * Diabetes Eye Exam (03/27/2023) [facility] Diabetes: Annual Retina Eye Exam abstracted Result [facility] HEALTH MAINTENANCE Final Result * (ABNORMAL) Lipid panel (08/12/2022) [facility] LDL/HDL Ratio 5(A) 0 - 4 Triglycerides 175(A) 0 - 150 mg/dL Cholesterol 177 0 - 200 mg/dL HDL 37(A) >=40 mg/dL LDL Cholesterol 105(A) 0 - 100 mg/dL Blood Venous blood specimen / Unknown Result [facility] Provider LAB BLOOD ORDERABLES Marlyn l Result * Colonoscopy (09/24/2019) [facility] Colonoscopy no interpretation , abstracted Anatomical Region Laterality Modality Other Result [facility] HEALTH MAINTENANCE Final Result * Hepatitis C Screening (02/19/2019) [facility] Hepatitis C Screening abstracted Result [facility] HEALTH MAINTENANCE Final Result from Last 3 Months or Most Recently Relevant to Health Maintenance Insurance [employer] Member Subscriber Plan / Payer (Ef fective 2017-Present) Name:GiovanyneerajEctor Relation to Subscriber:Self Name:Ector Chavez Payer ID:[id number] Group ID:[id number] Type:Not on file Address: [place] [address] [address] [place] [id number] Care Teams Photographic Processor Relationship Specialty Start Date End Date Km Evans MD [address] [place] [address] PCP - General Internal Medicine 07/20/21
--- OUTSIDE RECORDS SUMMARY | 2025-03-11 16:40 | XMS_ITS | Data Portability ---
Author Organization [employer] [facility], [facility] Address [address] [place] [id number] Care Team Providers Care Combination Building Inspector Name Role Phone HIM CCA OTHER Assessment Encounter Date Assessment Date Assessment LastModified by Organization Details LastModified Time 05/16/2024 05/16/2024 73 yo F with 2 days of sore throat and fever with Tmax 103. No cough, SOB, CP, rhinorrhea. Able to PO, but painful to swallow. No dysphagia. Using tylenol PRN throat pain. Pt afebrile with nml VS. Exam w/erythematous oropharynx, no tonsillar exudates or edema. No cervical lymphadenopath y. Rapid COVID/flu negative Rapid strep negative May have viral pharyngitis vs bacterial strep with group C. Sent throat culture, awaiting results. Pt declines lozenges. Discussed salt water gargles. Precautions reviewed. [email or web address] Not available 05/16/2024 22:06:04 Plan of Treatment Reminders Order Date Submit Date Provider Last Modified By Organization Details Last Modified Time Details Appointments None recorded. Lab rapid strep group A, throat 2024 025 [email or web address] 7 [facility], [address] [place] [address], [phone] 5 19:12:39 rapid flu (A+B) 2024 025 [email or web address] 7 [facility], [address] [place] [address], [phone] 5 19:12:39 rapid SARS CoV 2 Ag, QL IA, respiratory specimen 2024 025 [email or web address] 7 [facility], [address] [place] [address], [id number] 5 19:12:41 strep group A, DNA, swab 2024 025 [email or web address] [facility] (Centralized Electronic Ordering - All Locations), Patient Can Go To The Location Of Their Choice, [id number] 09:30:20 Referral None recorded. Procedures None recorded. Surgeries None recorded. Imaging None recorded. Medication Orders None recorded. Patient TargetsNo targets recorded. Patient InstructionsNo instructions recorded. Reason for Referral None Reported. Results Created Date Observation Date Name Description Value Unit Range Abnormal Flag Note LastModifiedBy Organization Detail LastModifiedTime 05/16/1905/17/2024 NTI VIRAL TRANS PORT nti viral transport Commen t Dear Mason r, The requi sitio n we recei tanya for the above patie nt has no test indic ated on the reque st form for one or more of the speci mens submi tted. [place] s requi res a writt en and desire d reque st be forwa rded to the testi ng labor atory follo wing the verba l order of a labor atory test. Pleas e compl ete the follo wing and fax to [phone] to exped ite testi ng. Requi red test name( s)___ ___ Requi red test numbe r(s)_ ___ Physi radha signa ronit_ __ Date_ __ Diagn osis Code: __ In order to maint tong palma e louie hoffmann es will be store d for two to seven days from the date of recei pt. A viral trans port was recei tanya with no test indic ated. If testi ng is requi red on this speci men, pleas e conta ct the [facility] Clien t Inqui ry/Te chnic al Servi les Depar tment to obtai n a Reque st for Writt en Autho rizat ion Form. Not Available [facility] ([facility]) [address] [facility], [place], [address], 05/17/2024 14:06:20 05/16/19 25 06/02/2024 STREP GP A DETEC TION, [place] strep gp A detection, [place] COMMEN T Test not perfo rmed. No bacte rial trans port swab recei tanya. Not Available [facility] ([facility]) [address] [facility], [place], [address], 06/02/2024 14:05:30 05/16/19 25 06/02/[address] PROBL EM request problem COMMEN T Test not perfo rmed. No bacte rial trans port swab recei tanya. TEST: [id number] Strep Gp A Detec tion, MADISON Not Available [facility] ([facility]) [address] [facility], [place], [address], 06/02/2024 14:05:31 05/16/19 25 05/16/2024 rapid SARS CoV 2 Ag, QL IA, respi rator y speci men rapid SARS CoV 2 Ag, QL IA, respiratory specimen negati ve Not Available [facility] [address] [place] [address], [phone] 05/16/2024 19:09:26 05/16/19 25 05/16/2024 rapid flu (A+B) Flu negati ve Not Available [facility] [address] [place] [address], [phone] 05/16/2024 19:09:20 05/16/19 25 05/16/2024 rapid strep group A, throa t Strep negati ve Not Available [facility] [address] [place] [address], [phone] 05/16/2024 19:09:15 Result Notes None recorded. Medical Equipment None Reported. Allergies No known drug allergies Medications Name Sig Start Date Stop Date Status Note LastModified by Organization Details LastModified Time arthrts pain tab 650mg active Not Available Not Available No t Available arth pain rel(acetamin ophen)650mg t TAKE 1 TABLET BY MOUTH EVERY 8 HOURS NEEDED FOR PAIN active Not Available Not Available No t Available latanoprost 0.005 % eye drops INSTILL 1 DROP IN BOTH EYES EVERY NIGHT active Not Available Not Available Not Available azithromycin 250 mg tablet active Not Available Not Available Not Available glipizide 10 mg tablet TAKE 1 TABLET BY MOUTH EVERY MORNING active Not Available Not Available No t Available prednisone 20 mg tablet TAKE 2 TABLETS BY MOUTH DAILY FOR 5 DAYS active Not Available Not Available N ot Available alendronate 70 mg tablet TAKE 1 TABLET BY MOUTH EVERY 7 DAYS active Not Available Not Available No t Available glipizide ER 5 mg tablet, extended release 24 hr TAKE 1 TABLET BY MOUTH DAILY BEFORE DINNER active Not Available Not Available No t Available sumatriptan 50 mg tablet TAKE 1 TABLET BY MOUTH EVERY 4 HOURS UP TO TWICE DAILY NEEDED active Not Available Not Available No t Available cyanocobalam in (vit B-12) 1,[address] ONE TABLET UNDER THE TONGUE DAILY active Not Available Not Available No t Available amlodipine 5 mg tablet TAKE 1 TABLET BY MOUTH DAILY active Not Available Not Available Not Available acetaminophe n ER 650 mg tablet,exten ded release TAKE 1 TABLET BY MOUTH EVERY 8 HOURS NEEDED FOR PAIN active Not Available Not Available No t Available meloxicam 7.5 mg tablet TAKE 1 TABLET BY MOUTH DAILY NEEDED FOR PAIN active Not Available Not Available No t Available prednisolone acetate 1 % eye drops,suspen faisal SHAKE LIQUID AND INSTILL 1 DROP IN BOTH EYES FOUR TIMES DAILY active Not Available Not Available No t Available OneTouch Ultra Test strips USE TO CHECK YOUR BLOOD SUGAR ONCE DAILY active Not Available Not Available N ot Available simvastatin 20 mg tablet TAKE 1 TABLET BY MOUTH AT BEDTIME active Not Available Not Available No t Available metformin 1,000 mg tablet TAKE 1 TABLET BY MOUTH TWICE DAILY WITH MEALS active Not Available Not Available No t Available clotrimazole -betamethaso ne 1 %-0.05 % topical cream APPLY TOPICALLY TO THE AFFECTED AREA TWICE DAILY active Not Available Not Available No t Available brimonidine 0.2 % eye drops INSTILL 1 DROP IN BOTH EYES TWICE DAILY active Not Available Not Available Not Available docusate sodium 100 mg capsule TAKE ONE CAPSULE BY MOUTH TWICE DAILY active Not Available Not Available No t Available gabapentin 300 mg capsule TAKE 2 CAPSULES BY MOUTH TWICE DAILY active Not Available Not Available No t Available omeprazole 20 mg capsule,laura yed release TAKE 1 CAPSULE BY MOUTH TWICE DAILY active Not Available Not Available No t Available loteprednol etabonate 0.5 % eye drops,suspen faisal SHAKE LIQUID AND INSTILL 1 DROP IN BOTH EYES EVERY DAY active Not Available Not Available No t Available polyethylene glycol 3350 17 gram/dose oral powder DISSOLVE 17 GRAMS EVERY DAY active Not Available Not Available No t Available albuterol sulfate HFA 90 mcg/actuatio n aerosol inhaler INHALE 2 PUFFS INTO THE LUNGS EVERY 4 HOURS NEEDED FOR WHEEZING active Not Available Not Available No t Available ondansetron 4 mg disintegrati ng tablet DISSOLVE 1 TABLET ON THE TONGUE EVERY 12 HOURS NEEDED FOR NAUSEA active Not Available Not Available No t Available oxycodone 5 mg tablet TAKE 1 TABLET BY MOUTH DAILY NEEDED FOR PAIN active Not Available Not Available No t Available OneTouch UltraSoft Lancets USE TO CHECK BLOOD SUGAR ONCE DAILY active Not Available Not Available No t Available lactulose 10 gram/15 mL oral solution TAKE 30 ML BY MOUTH DAILY active Not Available Not Available No t Available calcium 600 mg (as carbonate)-v itamin D3 10 mcg (400 unit) tablet TAKE 1 TABLET BY MOUTH TWICE DAILY active Not Available Not Available No t Available Calcium 500 With D 500 mg-10 mcg (400 unit) tablet TAKE 1 TABLET BY MOUTH TWICE DAILY active Not Available Not Available No t Available FeroSul 325 mg (65 mg iron) tablet TAKE 1 TABLET BY MOUTH EVERY DAY active Not Available Not Available No t Available diclofenac 1 % topical gel APPLY 1 APPICATION TOPICALLY TWICE DAILY NEEDED FOR PAIN active Not Available Not Available No t Available Wixela Inhub 250 mcg-50 mcg/dose powder for inhalation INHALE 1 PUFF INTO THE LUNGS DAILY active Not Available Not Available No t Available OneTouch Ultra2 Meter USE TO CHECK BLOOD SUGAR ONCE DAILY active Not Available Not Available No t Available Vitals Date Recorded Respiratory rate Oxygen saturation Heart rate Body temperature Systolic And Diastolic Provider Name and Address Organization Details Last Updated DateTime 5 18 /min 98 % 91 /min 98.6 [degF] 119/79 mm[Hg] Not Available [facility] 5 19:08:25 Date Recorded Body temperature Oxygen saturation Body height Heart rate Body weight Respiratory rate Systolic And Diastolic Provider Name and Address Organization Details Last Updated DateTime 4 98.2 [degF] 97 % 149.86 cm 86 /min 22676.9 6 g 14 /min 161/89 mm[Hg] Not Available [facility] 4 20:14:21 Social History None recorded. Functional Status None recorded. Mental Status None recorded. Family History Nothing Reported. Medical History No medical history recorded. Gynecological HistoryNo gynecological history recorded. Obstetrics History GPAL:G 0 P 0 0 0 0 Past Encounters Encounter ID Performer Location Encounter Start Date Encounter Closed Date Diagnosis/Indication Diagnosis SNOMED-CT Code Diagnosis ICD10 Code Diagnosis IMO Codes Diagnosis Note [id number] Antonio Crowder MD [facility] [address] [place] [phone] 09/18/2023 20:14:00 09/18/2023 22:48:27 Chest wall pain 579488544 R07.89 Patient reports reproducib le bilateral chest pain for several days. Worsened with movement, deep inspiratio n. No shortness of breath. No exertional symptoms. Slowly improving. Discussed with patient that we cannot rule out ACS in the home and that our recommenda tion would be for ER eval, although seems less likely based on symptoms. EKG obtained and without clear ischemia. Patient will follow-up with PCP in the morning. [id number] LIYAH MOYA MD [facility] [address] [place] [phone] 05/16/2024 19:08:17 05/17/2024 10:47:40 Viral pharyngitis 0692709 J02.8 Health Concerns Section Related Observation LastModified by Organization Detai ls LastModified Time None Recorded Concern Status LastModified by Organization Details LastModified Time None Recorded Advance Directives Directive None Recorded Payers Insurance Date Sequence Insurance Name Policy Number Policy Erwin Covered Member ID Erwin Member ID Guarantor Name 05/16/2024 1 [facility] - DOS ON OR AFTER 2022 - DUAL ELIGIBLE - ALF OPTIONS AND ONE CARE (MEDICARE REPLACEMENT/ADV ANTAGE - HMO) [facility] [id number] [facility] Notes Date Note Type Note Provider Name and Address Organization Details Recorded Time 09/18/2023 text/html [facility] Nurse Triage Notes (Renita Snider): Reason For Request: Patient has Armpit pain in both armpits, Hiccups. Chief Complaints: Wound Care PMH: Diabetes, Hypertension, COPD/Asthma, Severe Dementia Allergies: Unknown Comments: Tea Blender verified the member's name//address and phone number. Member is a 73 yr old female, kelley speaking, son speaks chadian PMH > Asthma/ dementia / DM/ HTN Son calling for mother. Member has pain under both sides of arm pits. Member has been having pain for 2 days. Member has not had any falls/ injuries. Per son , mild swelling and pain. Member has not changed any soap/ deodorant or lotions. Education provided on the response time and the member was advised to monitor reported s/s and seek emergency treatment if needed ................... ................... ................... ................... ................... ................... ................... ........ [facility] [employer] Note From Jatinder Forrest: Pt reports pain along the bottom rib mid axillary bilaterally. Pt denies any trauma or precipitating event. Pt sts she only feels the pain with movement or deep inspiration. Pt sts that she feels like the pain is improving. Pt denies any associated SOB, SRVIASTAVA, diaphoresis, cough, f/n/v/d. Pt is alert, NAD. VSS. Afebrile. Non focal neuro exam. Normal gait. Lungs CTA. Benign ABD exam. No contusions, erythema, edema, urticaria on chest, ABD or back. No LE edema. Unremarkable EKG. Pt/family educated on the diagnostic uncertainty of in home visits and that we cannot r/o a cardiac event. Pt/family instructed to f/u with PCP tomorrow and to seek emergent medical care for new or worsening sx, which are reviewed with them. ................... ................... ................... ................... ................... ................... ................... ........ Disposition: Fulfilled Antonio Crowder MD [address] [place] [address],[address], [place], [phone], [employer] 09/18/2023 20:32:42 05/16/2024 text/html [facility] Nurse Triage Notes (Renita Snider): Reason For Request: Patient has a Fever, was at 103, and throat problems Patient Reports: History of asthma, increased use of inhaler Denies: Increased work of breathing/labored with or without fever Unable to speak in full sentences without distress Discoloration of skin -cyanosis Needs to sleep sitting up, can t catch breath Shortness of breath in setting of confusion Cough, fever greater than 2 days COPD Sputum increase Cough Shortness of breath with exertion Pain with inspiration Chief Complaints: Fever PMH: Hypertension, COPD/Asthma, Diabetes Mellitus Type 2, Asthma, Other PMH Reviewed at 05/16/2024 - 13:52 Allergies Reviewed at 05/16/2024 - 13:52 Comments: Tea Blender verified the name//address and phone number. Son is calling for fever for over 2 days. She also has a sore throat. She does not have cough. He denies any sob. He denies any nausea or vomiting. She has been able to eat. She was given tylenol, the fever resolved and came back . Last temp 99.9 , no confusion PMH glaucoma Education provided on the response time and the Patient was advised to monitor reported s/s and seek emergency treatment if needed [employer] Organization Information for [facility] Business Legal Name: [employer]. Address: [address] [place] [id number], Qualifications Examiner: Mina LEI No.: [id number] [facility] POC Test Results from [facility] Rapid strep test (19:05:30) Strep: - Attachments uploaded as part of this test result can be found under Documents section. Rapid influenza antigen (19:05:31) Flu: - Attachments uploaded as part of this test result can be found under Documents section. Rapid COVID antigen (19:05:31) COVID: - Attachments uploaded as part of this test result can be found under Documents section. ................... ................... ................... ................... ................... ................... ................... ........ [facility] [employer] Note From Yovany Landa: [facility] dispatched to address listed above for female republican with strep throat. Arrival on scene, patient was found inside with son seated on couch, alert and oriented x4, patent airway, breathing non labored speaking in complete sentences, skin WPD in no immediate distress. +/= Chest rise. -SOB, -CP, -NVD, -Trauma, +Fever. GCS 15. Tonsils notably swollen upon exam. Son translated for patient as patient is not Frisian speaking. Patient reports sore throat x2 days with consistent fever, advised max fever recorded is 103. Patient reports management of pain and fever with both Tylenol and Ibuprofen. Patient advised she is still drinking water and eating but reduced due to the pain of the sore throat. Patient still medication compliant. Patient denies being around anyone sick. Patient vital signs obtained as noted. COVID/FLU/STREP POC tests performed and negative for all. [facility] consulted, advised to obtain a throat swab for [facility] send out. Patient throat swabbed again and labeled for send out. Red flags discussed with patient and son, advised to call back if condition worsens. [facility] clear. [facility] Lab Orders: rapid strep group A, throat: Performed rapid flu (A+B): Performed rapid SARS CoV 2 Ag, QL IA, respiratory specimen: Performed strep group A, DNA, swab: Performed ................... ................... ................... ................... ................... ................... ................... ........ [facility] Consulted: Liyah Moya ................... ................... ................... ................... ................... ................... ................... ........ Disposition: Fulfilled LIYAH MOYA MD [address] [facility],[address], [place], [phone], [employer] 05/16/2024 22:06:11 OBGyn Episode No OBEpisode recorded.
== END 2025-03-11 15:51 | disposition home or self-care (01) ==
LOC: HO.HSM 15:34
PROVIDERS: PCP Internal Medicine; Visit Provider Registered Nurse
DX: G43.909 Migraine, unspecified, not intractable, without status migrainosus (principal)
CPT/HCPCS: 99214

== ENCOUNTER → 2025-03-11 15:34 | Outpatient (BNVA) | payer OTHER, SELFPAY | PROVIDERS: PCP Internal Medicine; Visit Provider Registered Nurse | DX: G43.909 Migraine, unspecified, not intractable, without status migrainosus (principal); Z79.899 Other long term (current) drug therapy | CPT/HCPCS: 99212 ==